=== PATIENT | female | born 1940 | race Caucasian/White ===

== ENCOUNTER → 2017-01-15 | Outpatient (CLI) | payer MEDICARE ==
--- NOTE | 2017-01-15 17:16 | US ---
EXAMINATION TYPE: US carotid duplex BILAT DATE OF EXAM: 01/15/2017 4:27 PM COMPARISON: NONE CLINICAL HISTORY: 76-year-old female with R51 Headaches. TECHNIQUE: Carotid duplex ultrasound examination. Indirect Doppler criteria was utilized. FINDINGS: Haywood scale images show mild atherosclerotic change at the left greater than right bifurcations. EXAM MEASUREMENTS: RIGHT: Peak Systolic Velocity (PSV) cm/sec ----- Right CCA: 78.8 ----- Right ICA: 72.1 ----- Right ECA: 62.5 ICA/CCA ratio: 0.9 RIGHT: End Diastole cm/sec ----- Right CCA: 10.6 ----- Right ICA: 21.5 ----- Right ECA: 0.0 LEFT: Peak Systolic Velocity (PSV) cm/sec ----- Left CCA: 70.3 ----- Left ICA: 82.5 ----- Left ECA: 75.4 ICA/CCA ratio: 1.2 LEFT: End Diastole cm/sec ----- Left CCA: 16.2 ----- Left ICA: 29.3 ----- Left ECA: 0.0 VERTEBRALS (direction of flow): Right Vertebral: Antegrade Left Vertebral: Antegrade IMPRESSION: No hemodynamically significant stenosis appreciated in either ICA. Criteria for Assigning % of Stenosis / Diameter reduction (Estimation based on the indirect measurements of the internal carotid artery velocities (ICA PSV). 1. Normal (no stenosis)=ICA PSV < 125 cm/s: ratio < 2.0: ICA EDV<40 cm/s. 2. Less than 50% stenosis=ICA PSV < 125 cm/s: ratio < 2.0: ICA EDV<40 cm/s. 3. 50 to 69% stenosis=ICA PSV of 125 to 230 cm/s: ration 2.0 ? 4.0: ICA EDV 40-100 cm/s. 4. Greater than 70% stenosis to near occlusion= ICA PSV > 230 cm/s: ratio > 4.0: ICA EDV > 100 cm/s. 5. Near occlusion= ICA PSV velocities may be low or undetectable: variable ratio and ICA EDV. 6. Total occlusion=unable to detect flow.
== END | disposition home or self-care (01) ==
LOC: RADUSMAIN 16:02
PROVIDERS: ATTEND Psychiatry & Neurology Neurology
DX: R51 Headache (principal)
CPT/HCPCS: 93880

== ENCOUNTER → 2017-01-21 | Outpatient (CLI) | payer MEDICARE ==
--- NOTE | 2017-01-21 18:32 | MR ---
EXAMINATION TYPE: MR angio head wo con DATE OF EXAM: 01/21/2017 6:24 PM COMPARISON: NONE HISTORY: Headaches TECHNIQUE: Utilizing 3-D [id number] intracranial MRA of the [place] of [place] was performed. FINDINGS: The vertebrobasilar and carotid systems are patent. There is no sizable aneurysm or vascular malform ation. IMPRESSION: 1. No evidence of vascular malformation or sizable aneurysm.
--- NOTE | 2017-01-21 18:37 | MR ---
EXAMINATION TYPE: MR brain wo con DATE OF EXAM: 01/21/2017 6:29 PM COMPARISON: NONE HISTORY: Headaches T1-weighted sagittal, T2, FLAIR, and diffusion axial, and T2 coronal coronal views of the brain are s ubmitted. There is no evidence of acute ischemia. The ventricles, basal cisterns, and sulci overlying the conv exities are consistent with the patient's age. There is no mass effect. Craniocervical junction is maintained. Sella turcica has a normal appearance. Changes of chronic mastoiditis on the right noted. Mild chronic sinusitis seen. There are multiple nonspecific areas of abnormal signal in the white matter. IMPRESSION: 1. No acute intracranial process. 2. Nonspecific white matter changes. Most likely etiology is remote microvascular ischemia. Other shaun ologies not entirely excluded. 3. Chronic right mastoiditis and changes of sinusitis.
== END | disposition home or self-care (01) ==
LOC: RADMRIMAIN 16:21
PROVIDERS: ATTEND Nurse Practitioner Acute Care
DX: R90.82 White matter disease, unspecified (principal); H70.11 Chronic mastoiditis, right ear; J32.9 Chronic sinusitis, unspecified
CPT/HCPCS: 70544; 70551; 82565; 84520

== ENCOUNTER → 2017-08-02 | Outpatient (CLI) | payer MEDICARE ==
--- NOTE | 2017-08-02 12:27 | CT ---
EXAMINATION TYPE: CT femur LT wo con DATE OF EXAM: 08/02/2017 COMPARISON: NONE HISTORY: Lt hip and thigh pain CT DLP: 607.5 mGycm Automated exposure control for dose reduction was used. Unenhanced CT of the left femur was performed from the supra-acetabular region through the intercondy lar spines. Bone and soft tissue window settings are submitted as well as coronal and sagittal recons truction. FINDINGS: There is total left hip arthroplasty with femoral and acetabular components appearing well seated. I do not see evidence for abnormal periprosthetic lucency to suggest infection or possible loosening. S treak artifact does limit portions of the study. There is no evidence for fracture or osseous lesion. Small suprapatellar joint effusion is noted. Robert's cyst is noted measuring 1.8 cm. No soft tissue masses identified. IMPRESSION: 1. TOTAL LEFT HIP PROSTHESIS IS INTACT. 2. NO EVIDENCE FOR FRACTURE, DISLOCATION OR OSSEOUS LESION. 3 ROBERT'S CYST.
== END | disposition home or self-care (01) ==
LOC: RADCTMAIN 11:34
PROVIDERS: ATTEND Orthopaedic Surgery
DX: M25.552 Pain in left hip (principal); Z96.642 Presence of left artificial hip joint

== ENCOUNTER → 2018-09-01 | Outpatient (CLI) | payer MEDICARE ==
--- NOTE | 2018-09-01 11:21 | FL ---
EXAMINATION TYPE: FL barium swallow DATE OF EXAM: 09/01/2018 CLINICAL HISTORY: Chronic cough and gastroesophageal reflux with dysphagia. TECHNIQUE: A double contrast esophagram is performed utilizing air and barium. A total of 2 minutes and 8 seconds of fluoroscopic time was utilized during procedure. 41 fluoroscopic images were saved. COMPARISON: None FINDINGS: The esophagus shows delayed motility and emptying into the stomach secondary to a distal in complete stricture at the gastroesophageal junction. This creates persistent moderate to severe intra esophageal reflux to the level of the lower cervical esophagus. On subsequent images there is filling defect seen within the gastric fundus and thickened rugal folds concerning for gastric mass versus g astritis or ulcer. Persistent laryngeal penetration without aspiration was seen and therefore the patient was placed at a 45 degree angle relative and supine floor gravity independent (partially independent) imaging. No evidence of hiatal hernia. No significant gastroesophageal reflux was seen during real time performan ce of this study. IMPRESSION: 1. 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 There is concern for gastric fundal mass v ersus severe gastritis and/or peptic ulcer disease. Endoscopy is recommended. 2. Persistent laryngeal penetration without aspiration. Speech therapy consultation may be of benefit .
== END ==
LOC: RADFLWHC 09:40
PROVIDERS: ATTEND Otolaryngology
DX: K21.9 Gastro-esophageal reflux disease without esophagitis (principal)
CPT/HCPCS: 74220

== ENCOUNTER → 2018-09-23 | Outpatient (CLI) | payer MEDICARE ==
--- NOTE | 2018-09-23 12:14 | FL ---
Modified barium swallow. HISTORY: Dysphagia. Modified barium swallow was performed with the department of speech pathology. The patient was prese nted with various consistencies of barium. There is no evidence for aspiration or penetration. Full report is to follow from the department of speech pathology. Impression: Normal study.
== END | disposition home or self-care (01) ==
LOC: RADFLMAIN 10:58
PROVIDERS: ATTEND Otolaryngology
DX: R13.10 Dysphagia, unspecified (principal)
CPT/HCPCS: 74230